=== PATIENT | female | born 1995 | race Caucasian/White ===

== ENCOUNTER 2020-02-14 21:30 | Emergency (ER) | payer BC ==
[2020-02-14] MEDS ORDERED: HYDROCODONE/ACETAMINOPHEN 5-325 MG TABLET PO ONE (22:04)
--- NOTE | 2020-02-14 22:07 | ER Document Report ---
ED Medical Screen (RME) - General Chief Complaint: Fall Injury Stated Complaint: FALL-RIGHT ARM PAIN Time Seen by Provider: 02/14/20 21:58 Mode of Arrival: Ambulatory Information source: Patient Notes: HPI; 24-year-old female presents to the emergency room after a trip and fall. Patient states she missed a step landed face first on the ground and fell with her right arm outstretched trying to prevent the fall injuring her right elbow. She has abrasions to her face with an lower inner lip black. Denies any loss of consciousness. States her tetanus is up-to-date. PE: Alert and oriented x3. Mild distress noted. Abrasions to upper lip lower lip, laceration noted inside the lower lip. Tenderness over the nasal bones. Able to open and close mouth without difficulty. Moderate swelling noted to the right elbow. Patient is unable to extend elbow secondary to pain. Lungs: Clear to auscultation without rales, rhonchi, wheezes. Heart: Tachycardic without murmurs, rubs, gallops. Positive right radial pulse. I have greeted and performed a rapid initial assessment of this patient. A comprehensive ED assessment and evaluation of the patient, analysis of test results and completion of the medical decision making process will be conducted by additional ED providers. I have specifically instructed the patient or family members with the patient to immediately return to any nursing staff should anything change in the patient's condition or with their chief complaint. TRAVEL OUTSIDE OF THE [place] IN LAST 30 DAYS: No - Related Data Allergies/Adverse Reactions: amoxicillin Allergy (Mild, Verified 02/14/20 22:04) Past Medical History - Social History Chew tobacco use (# tins/day): No Frequency of alcohol use: Occasional Drug Abuse: None Physical Exam - Vital signs Vitals: Temp Pulse Resp BP Pulse Ox 98.6 F 113 H 15 122/79 100 02/14/20 21:52 02/14/20 21:52 02/14/20 21:52 02/14/20 21:52 02/14/20 21:52 Course - Vital Signs Vital signs: Temp Pulse Resp BP Pulse Ox 98.6 F 113 H 15 122/79 100 02/14/20 22:03 02/14/20 21:52 02/14/20 21:52 02/14/20 21:52 02/14/20 21:52
--- NOTE | 2020-02-14 23:07 | RADIOLOGY REPORT (SQ) ---
EXAM DESCRIPTION: XR ELBOW 3 VIEWS COMPLETED DATE/TME: 02/14/2020 22:49 CLINICAL HISTORY: 24 years, Female, injury COMPARISON: None. NUMBER OF VIEWS: 3 TECHNIQUE: 3 views of the right elbow were obtained LIMITATIONS: None. FINDINGS: No bone, joint, or definite soft tissue abnormality is seen. IMPRESSION: No acute abnormality as above. copyright 2010 [employer]- All Rights Reserved
--- NOTE | 2020-02-14 23:09 | RADIOLOGY REPORT (SQ) ---
EXAM DESCRIPTION: XR FACIAL BONES 1-2 VIEWS COMPLETED DATE/TME: 02/14/2020 22:49 CLINICAL HISTORY: 24 years, Female, injury COMPARISON: None. NUMBER OF VIEWS: 3 TECHNIQUE: PA, lateral, and Coronel views were obtained. LIMITATIONS: None. FINDINGS: There is leftward deviation of the bony nasal septum. Facial bones otherwise appear grossly intact. Paranasal sinuses appear clear. IMPRESSION: Bony nasal septal deviation. copyright 2010 [employer]- All Rights Reserved
--- NOTE | 2020-02-15 01:14 | ER Document Report ---
ED Fall - General Chief Complaint: Fall Injury Stated Complaint: FALL-RIGHT ARM PAIN Time Seen by Provider: 02/14/20 21:58 Mode of Arrival: Ambulatory Information source: Patient Notes: Patient is a 24-year-old female who comes emergency department for chief complaint of trip and fall. Patient was climbing steps, missed a step, fell on her right elbow mainly and also struck her face on the hard surface. Patient sustained abrasions to the nose, abrasion to the upper lip under the nose, and to the inside of the lower lip. Bleeding has stopped on its own. Patient reports a lot of pain in her right arm just before her elbow and reports she cannot straighten her arm. She denies passing out, vomiting, numbness, incontinence, chest pain, back pain, neck pain, or alcohol use. She is not on a blood thinner. She denies . Significant other at bedside. Tetanus up-to-date within 5 years reportedly TRAVEL OUTSIDE OF THE [place] IN LAST 30 DAYS: No - Related data Allergies/Adverse Reactions: amoxicillin Allergy (Mild, Verified 02/14/20 22:04) Past Medical History - General Information source: Patient - Social History Smoking Status: Never Smoker Chew tobacco use (# tins/day): No Frequency of alcohol use: Occasional Drug Abuse: None Lives with: Family Family History: Reviewed & Not Pertinent Patient has homicidal ideation: No Psychiatric Medical History: Reports: Hx Anxiety Surgical Hx: Negative - Immunizations Immunizations up to date: Yes Hx Diphtheria, Pertussis, Tetanus Vaccination: Yes Review of Systems - Review of Systems Constitutional: No symptoms reported EENT: No symptoms reported Cardiovascular: No symptoms reported Respiratory: No symptoms reported Gastrointestinal: No symptoms reported Genitourinary: No symptoms reported Female Genitourinary: No symptoms reported Musculoskeletal: See HPI Skin: See HPI Hematologic/Lymphatic: No symptoms reported Neurological/Psychological: No symptoms reported Physical Exam - Vital signs Vitals: Temp Pulse Resp BP Pulse Ox 98.6 F 113 H 15 122/79 100 02/14/20 21:52 02/14/20 21:52 02/14/20 21:52 02/14/20 21:52 02/14/20 21:52 - Notes Notes: GENERAL: Alert, slightly anxious, holding her left arm/elbow close to her body HEAD: Normocephalic, atraumatic. EYES: Pupils equal, round, and reactive to light. Extraocular movements intact. ENT: Oral mucosa moist, tongue midline. Oropharynx unremarkable. Airway patent. Nares patent, sinuses non-tender, ear canals unremarkable, TM's intact. Patient has an abrasion to the right upper lip without significant wound, abrasion to the anterior mid nasal bridge area without concerning swelling or laceration. Questionable deviation of the right nasal passage which does not appear new, there is no septal hematoma, no epistaxis, no concerning tenderness over the area. The inner lower lip has an avulsion but no current bleeding wound or significant wound is noted. Teeth are unremarkable with invisiline in place. Gums unremarkable. NECK: Full range of motion. Supple. Trachea midline. No lymphadenopathy. LUNGS: Clear to auscultation bilaterally, no wheezes, rales, or rhonchi. No respiratory distress. Non-tender chest wall. HEART: Regular rate and rhythm. No murmur ABDOMEN: Soft, non-tender. Non-distended. Bowel sounds present in all 4 quadrants. GENITOURINARY: Deferred EXTREMITIES: Tenderness to the distal right arm just above the elbow, patient cries when this is palpated. There appears to be a small contusion but there is no severe swelling, no tenderness directly over the elbow, normal forearm, wrist, hand exam, normal distal neurovascular exam, normal shoulder exam. BACK: no cervical, thoracic, lumbar midline tenderness. No saddle anesthesia, normal distal neurovascular exam. Moves all extremities in full range of motion. NEUROLOGICAL: Alert and oriented x3. Normal speech. Cranial nerves II through XII grossly intact. Strength 5/5 in all extremities. PSYCH: Normal affect, normal mood. SKIN: Warm, dry, normal turgor. No rashes or lesions noted. Course - Re-evaluation Re-evalutation: X-ray of the elbow and CAT scan of the face with no acute findings. No wounds requiring repair noted. No concerning symptoms reported, no neurological deficits. Initially I was concerned because patient would not straighten her elbow, however with assistance from me straightening and also massaging her tense bicep patient did straighten this out and found it was not impaired or unbearable. There is a contusion over the distal arm with pain but I do not see any concerning findings. Patient provided a sling for comfort to use if desired, discussed precautions, expectations, monitoring, return precautions. Patient and significant other state appreciation and agreement. - Vital Signs Vital signs: Temp Pulse Resp BP Pulse Ox 98.6 F 90 15 104/60 100 02/14/20 22:03 02/15/20 01:24 02/15/20 01:24 02/15/20 01:24 02/15/20 01:24 Discharge - Discharge Clinical Impression: Skin avulsion, Right elbow pain Fall Qualifiers: Encounter type: initial encounter Qualified Code(s): W19.XXXA - Unspecified fall, initial encounter Facial abrasion Qualifiers: Encounter type: initial encounter Qualified Code(s): S00.81XA - Abrasion of other part of head, initial encounter Contusion of right elbow Qualifiers: Encounter type: initial encounter Qualified Code(s): S50.01XA - Contusion of right elbow, initial encounter Condition: Stable Disposition: HOME, SELF-CARE Additional Instructions: The images do not show any fractures or concerning findings other than a septal deviation (probably from an old fracture of the nose). The skin abrasions will heal, the skin avulsion of the lip will heal, keep the areas clean with soap and water and apply topical antibiotic. You can wear the sling for comfort of your arm but remember to take out your arm and perform full range of motion to avoid developing stiffness with the joint. Do gentle stretches and massage, take anti-inflammatory and muscle x-rays prescribed. You should progressively worsen with soreness at first and then that should gradually resolve. Follow-up with primary care. Please follow the injury precautions listed below. Return for any concerning symptoms. Head Injury Precautions At this point, there is no evidence that your head injury is serious. Observation is necessary, however. Limit activity for the first 24 hours. During the first 24 hours, check to see approximately every two to three hours that the patient is easily arousable, responds normally, and can perform common tasks such as walking without difficulty. Contact your doctor or go to the hospital if any of the following things occur: Persistent vomiting, difficulty in arousing the patient, worsening or continued headache, or failure to improve as expected. Head injuries can cause symptoms that persist for a few days or even a few weeks. Post-Concussion Syndrome Post-concussion syndrome often follows a mild head injury. Dizziness, mild nausea, mild headache, trouble concentrating, and a general sense of "not being right" may persist for a week or two. This is a frequent complication of concussion. However, if the symptoms worsen, or new symptoms develop, you should be re-examined by the physician. There is no specific cure for post-concussion syndrome. You can take mild pain medication such as ibuprofen or acetaminophen. While you should not drive if you are dizzy, you can get back to your regular activities as quickly as the symptoms will allow. And while vigorous exercise may worsen the headache, mild physical activity often is helpful. Sitting and thinking about your symptoms will worsen them. If difficulties continue, you may need referral for special therapy to help you regain full mental function. Call the physician if you are worsening, or if symptoms are still present in one week. Report any new symptoms immediately. Prescriptions: Naproxen 500 mg PO BID PRN #20 tablet PRN Reason: Methocarbamol [Robaxin-750] 750 mg PO QID PRN #20 tablet PRN Reason:
[2020-02-15 01:24] VITALS: BP 104/60
== END 2020-02-15 01:25 | disposition home or self-care (01) ==
LOC: ER 21:30
DX: S50.01XA Contusion of right elbow, initial encounter (principal); S00.511A Abrasion of lip, initial encounter; S00.31XA Abrasion of nose, initial encounter; W10.1XXA Fall (on)(from) sidewalk curb, initial encounter; Y92.410 Unspecified street and highway as the place of occurrence of the external cause; J34.2 Deviated nasal septum; Z88.0 Allergy status to penicillin
CPT/HCPCS: 70150; 99284